=== PATIENT | female | born 1945 | race Caucasian/White ===

== ENCOUNTER 2017-06-29 07:59 | Outpatient (CLI) | payer MEDICARE, OTHER ==
--- NOTE | 2017-06-29 11:34 | ULT ---
RIGHT UPPER QUADRANT ULTRASOUND: History: Right upper quadrant pain. Comparison: None. FINDINGS: The visualized portion of the pancreas is unremarkable. Gallbladder is normal. Common bile duct measures up to 8 mm in size. Increased hepatic echotexture. The liver measures almost 17 cm in length. Right kidney measures 10.8 x 4.2 x 6.1 cm. Gallbladder wall thickness is normal. No pericholecystic f luid. There is a hypoechoic mass in the right lobe of the liver adjacent to the falciform ligament measurin g up to 2.7 cm. This is slightly increased in size from 2008. IMPRESSION: Slight size increase to the hypoechoic area near the gallbladder fossa measuring up to 2.7 cm. This m ay reflect a focal area of fatty sparing due to the diffuse hepatic steatosis. Underlying suspicious mass thought much less likely given its minimal change in size over the last 10 years. POS: [facility]
== END 2017-06-29 08:00 | disposition home or self-care (01) ==
LOC: NAV ULT 07:59
PROVIDERS: ATTEND Family Medicine
DX: K76.0 Fatty (change of) liver, not elsewhere classified (principal)
CPT/HCPCS: 76705

== ENCOUNTER 2021-08-10 19:25 | Emergency (ER) | payer MEDICARE ==
[2021-08-10] MEDS ORDERED: Sodium Chloride 0.9% 0 ML ONE (20:01)
[2021-08-10] MEDS ORDERED: Ketorolac Tromethamine 30 MG/ML VIAL ONE (20:01)
[2021-08-10] MEDS ORDERED: Metoclopramide HCl 10 MG/2 ML VIAL ONE (20:01)
[2021-08-10] MEDS ORDERED: Pantoprazole 40 MG VIAL ONE (20:01)
[2021-08-10] MEDS ORDERED: Ondansetron PF 4 MG/2 ML Vial ONE (20:05)
[2021-08-10 20:25] LABS: #Eosinphils 0.1 thou/uL (0.0-0.7); #Lymphocytes 1.2 thou/uL (1.20-3.40); #Monocytes 0.5 thou/uL (0.11-0.59); #Neutrophils 9.3 thou/uL (1.40-6.50); %Basophils 0.3 % (0.0-1.0); %Lymphocytes 10.8 % (21.0-51.0); %Monocytes 4.4 % (0.0-10.0); %Neutrophils 83.4 % (42.0-75.0); Hemoglobin 16.4 g/dL (12.0-16.0); Mean Corpuscular HGB CONC 31.2 g/dL (32.0-36.0); Mean Corpuscular Hemoglobin 29.7 pg (27.0-31.0); Mean Corpuscular Volume 95.1 fL (78.0-98.0); Platelet Count 177 thou/uL (130-400); RBC Distribution Width 12.6 % (11.5-14.5); Red Blood Cell (RBC) Count 5.53 mill/uL (4.20-5.40); White Blood Cell (WBC) Count 11.1 thou/uL (4.8-10.8)
[2021-08-10 20:43] LABS: ALT (SGPT) 301 U/L (8-55); AST (SGOT) 631 U/L (5-34); Albumin 4.5 g/dL (3.4-4.8); Alkaline Phosphatase 249 U/L (40-110); Anion Gap 22 mmol/L (10-20); BUN (Urea Nitrogen) 14 mg/dL (9.8-20.1); Bilirubin, Total 2.1 mg/dL (0.2-1.2); Calc. Creatinine Clearance 0 mL/min (70-130); Calcium 10.1 mg/dL (7.8-10.44); Carbon Dioxide 22 mmol/L (23-31); Chloride 100 mmol/L (98-107); Estimated GFR 64; Globulin 3.3 g/dL (2.4-3.5); Glucose 203 mg/dL (83-110); Lipase 28 U/L (8-78); Potassium 4.4 mmol/L (3.5-5.1); Protein, Total 7.8 g/dL (5.8-8.1); Sodium 140 mmol/L (136-145)
[2021-08-10 21:25] LABS: Bilirubin Negative (Negative); Blood, Urine Negative (Negative); Clarity Clear (Clear); Glucose, Urine (Dipstick) 500 mg/dL (Negative); Ketone, Urine Negative (Negative); Leukocyte Negative (Negative); Nitrite Negative (Negative); Protein, Urine (Dipstick) Negative (Neg-Trace); Specific Gravity, Urine 1.025 (1.005-1.030)
== END 2021-08-10 22:15 | disposition short-term general hospital (02) ==
LOC: NAV ERS 19:25
DX: K83.1 Obstruction of bile duct (principal); E11.9 Type 2 diabetes mellitus without complications; I10 Essential (primary) hypertension; Z79.899 Other long term (current) drug therapy
CPT/HCPCS: 80053; 81003; 83690; 84484; 85025; 93005; 96374; 96375; C9113; J1885; J2405; J2765